=== PATIENT | female | born 1985 | race Native Hawaiian/Other Pacific Islander ===

== ENCOUNTER 2021-09-05 08:19 | Outpatient (CLI) | payer OTHER | END 2021-09-05 19:52 | disposition home or self-care (01) | LOC: NM 08:19 | PROVIDERS: ATTEND Nurse Practitioner Family | DX: R10.11 Right upper quadrant pain (principal); R94.5 Abnormal results of liver function studies | CPT/HCPCS: A9537 ==

== ENCOUNTER 2023-01-21 10:16 | Emergency (ER) | payer OTHER ==
[~2023-01-21] VITALS: Ht 167.6 cm; Wt 104.3 kg
[2023-01-21 12:38] LABS: PLATELET COUNT 344 K/uL (152-353)
[2023-01-21 12:52] LABS: POTASSIUM 4.4 mmol/L (3.6-5.2)
[2023-01-21 16:45] VITALS: BP 118/66; TEMP 97.6
== END 2023-01-21 16:45 | disposition home or self-care (01) ==
LOC: ED 10:16
PROVIDERS: Emergency Medicine
DX: K76.9 Liver disease, unspecified (principal); R10.84 Generalized abdominal pain
CPT/HCPCS: 80053; 81002; 81025; 83690; 85027; 99283; Q9963